=== PATIENT | male | born 1965 | race Caucasian/White ===

== ENCOUNTER 2018-05-05 14:10 | Emergency (ER) | payer BC ==
[~2018-05-05] VITALS: Ht 177.8 cm; Wt 86.2 kg
== END 2018-05-05 17:54 | disposition home or self-care (01) ==
LOC: ER 14:10
DX: S41.15 Open bite of upper arm (principal); L08.89 Other specified local infections of the skin and subcutaneous tissue; V00-Y99 External causes of morbidity